=== PATIENT | male | born 1990 | race Caucasian/White ===

== ENCOUNTER 2019-04-03 16:10 | Inpatient (IN) ==
[2019-04-03] MEDS ORDERED: NS 1,000 ML IV ONE ×3 (16:29→17:57)
[2019-04-03] MEDS ORDERED: ZOSYN 4.5 GM in NS 100 ML IV ONE (16:30)
[2019-04-03] MEDS ORDERED: BENTYL IM ONE (16:30)
[2019-04-03] MEDS ORDERED: SODIUM CHLORIDE 0.9% INJ ONE (16:30)
[2019-04-03] MEDS ORDERED: PEPCID IV ONE (16:30)
[2019-04-03 16:55] LABS: BASO% 0.2 % (0.0-0.8); EOS% 0.9 % (0.0-10.0); HEMATOCRIT 51.7 % (42.0-52.0); HEMOGLOBIN 17.6 g/dL (14.0-18.0); IMM GRAN% 0.3 % (0.0-0.5); LYMPH# 1.18 X1000 (1.2-3.4); LYMPH% 4.2 % (20.5-51.1); MCH 30.5 PG (27-31); MCV 89.6 FL (81-99); MONO% 5.3 % (1.7-9.3); NEUT# 24.87 X1000 (1.4-6.5); NEUT% 89.1 % (42.2-75.2); PLT 333 X1000 (130-400); RBC 5.77 XMIL (4.7-6.1); RDW 12.8 % (11.5-14.5); WBC 27.89 X1000 (4.8-10.8)
[2019-04-03 16:56] LABS: ALLEN TEST NO; BE -5.2 mmoll (-3.0-3.0); BLOOD TYPE ARTERIAL; HCO3-(ACT) 20.8 mmoll (20.0-26.0); METHB 1.2 % (0.0-1.5); O2HB 97.1 % (95.0-99.0); PCO2(98.6) 34 mmHg (35-45); PO2(98.6) 137 mmHg (60-100); SAMPLE BLOOD; SAO2 100.2 % (95.0-100.0); THB 18.2 g/dL (11.5-17.4); pH(98.6) 7.36 (7.35-7.45)
[2019-04-03 16:56] LABS: BASO# 0.05 X1000 (0.0-0.2); EOS# 0.25 X1000 (0.0-0.7); IMM GRAN# 0.07 X1000 (0.0-0.04); MONO# 1.47 X1000 (0.11-0.59)
[2019-04-03 16:57] LABS: MODALITY CANNULA
[2019-04-03] MEDS ORDERED: PROTONIX 80 MG in NS 80 ML IV ONE (17:00)
[2019-04-03 17:01] LABS: INR 0.88; PROTIME 12.7 Seconds (11.0-16.0)
[2019-04-03 17:02] LABS: PTT 21.2 Seconds (22.3-41.8)
[2019-04-03] MEDS ORDERED: DILAUDID IV PRN (17:14)
[2019-04-03 17:22] LABS: ALBUMIN 5.4 g/dL (3.5-5.0); CREATININE 1.7 mg/dL (0.7-1.2); MAGNESIUM 2.1 mg/dL (1.5-2.7); POTASSIUM 4.4 mmol/L (3.5-5.1); TOTAL BILIRUBIN 0.61 mg/dL (0.20-1.00); TOTAL PROTEIN 10.6 g/dL (6.3-8.3)
--- NOTE | 2019-04-03 17:56 | PROVIDER DOCUMENTATION ---
This chart was entered by Aviva Hood Scribe, acting as scribe for Desmond Colby MD. HPI-General Adult - General Chief Complaint: B/P Problems Stated Complaint: DIARRHEA,LOW BP Time Seen by Provider: 04/03/19 16:21 Source: patient Allergies/Adverse Reactions: Patient Allergies Allergy/AdvReac Type Severity Reaction Status Date / Time guaifenesin [From Entex T] Allergy excitabilit Verified 04/03/19 16:51 y meperidine [From Demerol] Allergy seizure Verified 04/03/19 16:51 pseudoephedrine Allergy excitabilit Verified 04/03/19 16:51 [From Entex T] y - History of Present Illness -Gen Adult Nature of Presenting Problems: Patient is a 29 year old male who presents to the ED from PCP's office for dehydration. Patient states he has had multiple episodes of diarrhea. Reports history of Crohn's and he received Stelara once a month. States having 1 episode of vomiting with blood present. Patient's mother states patient is on pain pills and has been taking too many, so he is almost out of his pain medications. Location of Pain/Injury: reports: none Pain Radiation: reports: no radiation Quality of Pain: reports: none Severity: reports: moderate Onset/Duration: reports: gradual Timing: reports: still present Associated Symptoms: reports: diarrhea, vomiting (with blood) Similar Symptoms Previously?: Yes Recently seen or treated by another doctor?: Yes Review of Systems - Adult - REVIEW OF SYSTEMS - ADULT Constitutional: reports: no symptoms reported. denies: chills, fever, fatique Eyes: reports: no symptoms reported Ears, Nose, Mouth & Throat: reports: no symptoms reported Cardiovascular: reports: no symptoms reported Respiratory: reports: no symptoms reported Gastrointestinal: reports: see HPI, hematemesis (1 episode), diarrhea. denies: abdominal pain, rectal bleeding Genitourinary: reports: no symptoms reported Musculoskeletal: reports: no symptoms reported Integumentary: reports: no symptoms reported Neurological: reports: no symptoms reported Psychiatric: reports: no symptoms reported Endocrine: reports: no symptoms reported Hematologic/Lymphatic: reports: no symptoms reported Allergic/Immunologic: reports: no symptoms reported All Other Systems: Reviewed and Negative Past History - Adult - PAST MEDICAL HISTORY-ADULT Review of Records: reports: Old Records Reviewed, Nursing Assessment Review, Medications Reviewed, Social history reviewed & non-contributory. Major Childhood Illnesses: reports: denies history Cardiovascular: reports: denies history Respiratory: reports: asthma Gastrointestinal: reports: Crohn's, GERD Obstetrical/Gynecological: reports: denies history Genitourinary: reports: denies history Musculoskeletal: reports: denies history Neurological: reports: Seizures/Epilepsy Endocrine/Immune: reports: denies history Other Conditions: reports: denies history - PRIOR SURGERIES/PROCEDURES Surgical/Procedure History: reports: reviewed, not pertinent - IMMUNIZATION STATUS Childhood Immunizations: See Nurse Assessment Flu Vaccine: See Nurse Assessment - FAMILY HISTORY Family History: reviewed, not pertinent - SOCIAL HISTORY Smoking: denies Substance Use: denies Living Situation: family Physical Exam-General - PHYSICAL EXAM-ADULT Initial Vital Signs Reviewed: Yes - CONSTITUTIONAL General Appearance: alert, mild distress, thin, other (chronically ill appearing) - HEAD, EARS, NOSE, MOUTH & THROAT HENMT: normocephalic/atraumatic, other (dry mucous membranes). negative: angioedema - RESPIRATORY Respiratory: chest non-tender, lungs clear, normal breath sounds. negative: crackles, stridor, wheezing - CARDIOVASCULAR Cardiovascular: normal peripheral pulses, tachycardia. negative: systolic murmur - GASTROINTESTINAL (ABDOMEN) Abdominal Exam: normal bowel sounds, non tender, soft, other (colostomy to RLQ). negative: guarding, rebound - MUSCULOSKELETAL Extremity: non-tender, normal inspection. negative: deformity, erythema - SKIN Integumentary: normal turgor, warm/dry, pallor. negative: cyanosis, erythema, jaundice, rash - NEUROLOGIC Neurologic: grossly normal. negative: aphasia, facial droop - PSYCHIATRIC Psych/Mental Status: normal mood/affect, oriented x 3. negative: anxious Progress - PLAN OF CARE/RESULTS Progress/Plan/Lab Results: Vital Signs - 8 hr 04/03/19 16:19 Temperature 97.8 F Pulse Rate 113 H Respiratory Rate 16 Blood Pressure 89/66 Result Diagrams: 04/03/19 16:30 04/03/19 16:30 - REASSESSMENT Reassessment #1 Time Reassessed: 17:55 Status: improving (responded to IVF bolus of 30ml/kg, BP 99/59, HR 110, states feels better. Skin warm/dry, good cap refill.) Reassessment Comment: CT pending - EKG 1 Time of EKG reading by physician:: 16:18 EKG Read and Signed by:: Desmond Colby EKG Interpretation (*Must complete 3 of following elements*): Abnormal Rate: 113 Rhythm: sinus tachycardia Ramona: normal ID Interval: normal Comments: otherwise normal ECG - CONSULTS/PCP/HOSPITALIST Notification #1 *Consult/PCP/Hospitalist*: Dusty Time Discussed: 17:51 Consult Disposition: other (ask Gamaliel to see patient since he saw him this afternoon) #2 Consult: Gamaliel Time Discussed: 17:54 Consult Disposition: Admit (requests I admit to floor/tele and write holding ord ers) Departure - Departure Date of Disposition Decision: 04/03/19 Time of Disposition Decision: 17:52 DIAGNOSIS: Septic shock due to undetermined organism, Crohn's disease of both small and large intestine with complication Disposition: ADMITTED INPATIENT 09 Certified Medical Emergency: Emergent Condition: Fair Referrals and Follow-Ups: Alexandr Alston MD [Primary Care Provider] - - Critical Care Note This patient required my direct & personal management of CC.: Yes Total Time (mins): 45 ([facility] in peril without multiple interventions) Critical Care Statement: This patient required my direct personal management to treat or rule out processes, the absence of which, could potentiallly result in sudden, clinically significant life or limb threatening deterioration. Attestation - Physician/ MARIE Attestation Patient care was provided by Advanced Practice Provider:: No The physician spent face to face time with patient:: Yes Advanced Practice Provider documentation review:: Supervising physician onsite and consulted in the evaluation and care of this patient. The physician did have a face to face encounter with the patient. This chart was documented by the indicated scribe, (Aviva Hood Scribe) and accurately reflects the services I performed and decisions made by me, Desmond Colby MD, as attested by the provider's signature.
[2019-04-03] MEDS ORDERED: ZOFRAN IV PRN (17:57)
[2019-04-03] MEDS ORDERED: MORPHINE IV PRN (17:57)
--- NOTE | 2019-04-03 18:15 | Diag Imaging Result Doc PS360 ---
EXAM: CT ABD/PELVIS W/IV CONT ONLY 04/03/2019 HISTORY: hx of crohns, diarrhea/sepsis TECHNIQUE: This exam was performed using automated exposure control, adjustment of mA or kV according to patient size, and/or use of iterative reconstruction technique. COMMENT: There are no previous studies available for comparison. There is minimal dependent atelectasis in the posterior costophrenic sulci. There is prominence of the hemiazygos vein. The drainage of the left renal vein apparently is through the hemiazygos to the azygos. The aorta is not distended. There is a right lower quadrant ileostomy. There has apparently been subtotal colectomy. There is bilateral nephrolithiasis with a stone in the upper pole of the right kidney measuring 6 mm. There is no evidence of bowel obstruction. There are some prominent mesenteric nodes. The adrenal glands and spleen are not enlarged. There is a small hiatal hernia. There are bilateral renal cysts. The liver is unremarkable. There are no apparent gallstones. Pelvis: The urinary bladder is not distended. There is no evidence of free fluid. The regional skeleton appears to be intact. IMPRESSION: Bilateral nephrolithiasis without evidence of obstruction. Otherwise no evidence of acute intra-abdominal disease. Electronically signed by Vinay Bradley 04/03/2019 6:12 PM
--- NOTE | 2019-04-03 18:24 | Diag Imaging Result Doc PS360 ---
EXAM: CHEST-1 VIEW 04/03/2019 HISTORY: weakness TECHNIQUE: Semiupright chest COMMENT: There is no evidence of acute cardiac or pulmonary disease. There are no previous studies. IMPRESSION: No acute disease. Electronically signed by Vinay Bradley 04/03/2019 6:21 PM
--- NOTE | 2019-04-03 21:58 | HISTORY AND PHYSICAL ---
CHIEF COMPLAINT: Vomiting, diarrhea, and extreme weakness for 12 hours. HISTORY OF PRESENT ILLNESS: This is the first recent [facility] admission for this 29-year- old white man with history of Crohn disease, colectomy, and Crohn disease of both his duodenum and small intestine. He started to have moderately severe diarrhea this morning. He presented to the office late this afternoon with extreme weakness. Blood pressure was 52/40 in the office and he was sitting in a wheelchair, but could not lie back due to limitations of the chair. He was speaking very softly and slowly because of weakness. He was able to comprehend simple questions. Decision was made to have him go to the emergency room for hydration, then admission. He had fever for a couple of days. There was no history of cough, sore throat or dysuria. He had no blood in the diarrhea. CT scan of his abdomen was done in the emergency room, revealing no gallstones or significant abnormality, except for some prominent mesenteric nodes. He had a small hiatal hernia. There were bilateral renal cysts. Chest x-ray was unremarkable, with no infiltrates. Laboratory showed white blood count 28,000 with 89% neutrophils. Chemistry revealed BUN 22, creatinine 1.7, glucose 109, calcium 11.0, total protein 10.6, albumin 5.4. Troponin T less than 0.01. Plasma lactate 1.1. He has had no recent hospitalizations. His colectomy was over a year ago at [facility]. He has been on Stelara, biologic agent, for Crohn disease. CURRENT MEDICATIONS: Klonopin 1 mg q.i.d.; gabapentin 100 mg q.i.d.; Percocet 10/325 one q.4 hours; Xtampa ER 9 mg 1 b.i.d.; promethazine 25 mg q.4 hours p.r.n. nausea; Zanaflex 4 mg, 0.25 tablet p.r.n.; Desyrel 50 mg at bedtime; Trintellix 10 mg daily. ALLERGIES: Guaifenesin, meperidine, pseudoephedrine and morphine. He has been able to take Dilaudid IV in the past despite his allergy to morphine. REVIEW OF SYSTEMS: Significant for chronic back pain related to both Crohn disease and compression fractures. The compression fractures occurred after long-term p.o. steroids for Crohn disease. His weight has been fairly stable over the past several months. He has been unable to eat anything or drink liquids today because of his nausea. PHYSICAL EXAMINATION: VITAL SIGNS: Temperature 98.7 degrees, heart rate 68, respirations 16, blood pressure 92/57. O2 saturation 98% sat on oxygen 100%. Pain level 3. RECTAL AND GENITALIA: Deferred. He has a colostomy. IMPRESSION: 1. Colitis. 2. Diarrhea and vomiting. 3. Dehydration. 4. Crohn disease. 5. Compression fractures of back. 6. Chronic pain syndrome. 7. Chronic anxiety. 8. Depression. PLAN: Admit for further evaluation and treatment including hydration, cultures and intravenous antibiotics. cc: Alexandr Alston MD MTDD
[2019-04-03] MEDS: NS 1,000 ML IV SCH (23:13)
[2019-04-03 23:16] LABS: URINE SOURCE CLEAN CATCH
[2019-04-03 23:21] LABS: BILIRUBIN URINE NEGATIVE (NEGATIVE); BLOOD URINE MODERATE (NEGATIVE); COLOR YELLOW; GLUCOSE URINE NEGATIVE (NEGATIVE); KETONE URINE NEGATIVE (NEGATIVE); LEUKOCYTES URINE NEGATIVE (NEGATIVE); NITRITE URINE NEGATIVE (NEGATIVE); PROTEIN URINE 50 mg/dL (NEGATIVE); TURBIDITY URINE CLEAR (CLEAR); UR EPITHELIAL CELLS <10 /HPF (<10); URINE BACTERIA NEGATIVE /HPF; URINE RBC 20-40 /HPF (<10); URINE WBC <10 /HPF (<10); UROBILINOGEN URINE NORMAL (NORMAL)
[2019-04-03] MEDS: DILAUDID IV PRN (23:22)
[2019-04-04 00:07] LABS: SP GRAVITY URINE 1.015
[2019-04-04] MEDS: ZOSYN 3.375 GM in NS 50 ML IV SCH ×3 (00:39→16:47)
[2019-04-04] MEDS: NS 1,000 ML IV SCH ×4 (01:08→20:27)
[2019-04-04] MEDS: PROTONIX 80 MG in NS 80 ML IV SCH ×2 (04:33→14:08)
[2019-04-04] MEDS: DILAUDID IV PRN ×5 (04:45→16:52)
--- NOTE | 2019-04-04 07:04 | EKG Report ---
Test Performed on : 04/03/2019 4:18:31 PM Test Reason : ED. NO EKG ORDER FOR MUSE Blood Pressure : / mmHG Vent. Rate : 113 BPM Atrial Rate : 113 BPM P-R Int : 118 ms QRS Dur : 078 ms QT Int : 326 ms P-R-T Axes : 057 074 053 degrees QTc Int : 447 ms Sinus tachycardia. Otherwise normal ECG No previous ECGs available Unconfirmed Result
[2019-04-04 07:47] LABS: BASO# 0.03 X1000 (0.0-0.2); BASO% 0.3 % (0.0-0.8); EOS# 0.42 X1000 (0.0-0.7); EOS% 4.4 % (0.0-10.0); HEMATOCRIT 40.4 % (42.0-52.0); HEMOGLOBIN 13.2 g/dL (14.0-18.0); LYMPH# 1.81 X1000 (1.2-3.4); MCH 30.9 PG (27-31); MCHC 32.7 g/dL (33-37); MCV 94.6 FL (81-99); MONO# 0.78 X1000 (0.11-0.59); MONO% 8.2 % (1.7-9.3); MPV 10.9 FL (7.4-10.4); NEUT% 68.1 % (42.2-75.2); PLT 194 X1000 (130-400); RBC 4.27 XMIL (4.7-6.1); RDW 12.8 % (11.5-14.5); WBC 9.54 X1000 (4.8-10.8)
--- NOTE | 2019-04-04 08:32 | PROGRESS NOTE ---
DATE: 04/04/2019 Temperature 98.4 degrees, heart rate 60, respirations 16, blood pressure 97/57, and O2 saturation on 2 liters nasal oxygen 100%. Pain level 7. Dilaudid IV is helping. Location of pain is in his low back. He has chronic pain due to compression fractures. Nausea has improved markedly. Abdomen is mildly tender, generalized. Diarrhea is somewhat improved. C. Diff antigen was negative. Cultures are pending. He is on Zosyn. CBC revealed hemoglobin 13.2, hematocrit 40.4, and white blood count 9500. Serum lactate is 1.2. PLAN: Increase diet at noon to soft GI. cc: Alexandr Alston MD
[2019-04-04] MEDS ORDERED: AYR NASAL SPRAY NAS ONE (16:26)
[2019-04-04] MEDS: OXYCONTIN PO SCH (20:27)
[2019-04-04] MEDS: PERCOCET-5 PO PRN (20:29)
[2019-04-04] MEDS ORDERED: DILAUDID IV ONE (23:05)
[2019-04-05] MEDS: ZOSYN 3.375 GM in NS 50 ML IV SCH ×3 (00:11→17:32)
[2019-04-05] MEDS: PERCOCET-5 PO PRN ×2 (00:11→04:20)
[2019-04-05] MEDS: NS 1,000 ML IV SCH ×2 (04:22→12:30)
[2019-04-05] MEDS: TYLENOL PO PRN (07:00)
[2019-04-05] MEDS: OXYCONTIN PO SCH ×2 (08:20→22:00)
[2019-04-05] MEDS: DILAUDID IV PRN ×5 (09:13→22:33)
--- NOTE | 2019-04-05 09:55 | PROGRESS NOTE ---
DATE: 04/05/2019 Vital signs stable with temperature 97.5 degrees, heart rate 60, respirations 18, blood pressure 107/69, O2 saturation on nasal oxygen 100%. Pain level 8. The patient has tremor this morning. This may be withdrawal from decreasing dose of narcotics. He moved and injured his back last night and complains of increasing pain. He has not eaten breakfast yet. Lab could not draw his as blood for BMP this morning. Chest is clear. Abdomen is soft. Diarrhea has improved. Blood cultures are showing no growth at this time. PLAN: Continue IV Zosyn, change pain medicine back to IV Dilaudid. Recheck BMP tomorrow morning. cc: Alexandr Alston MD
[2019-04-05 11:05] LABS: AGAP 8; BUN 3 mg/dL (8-22); CALCIUM 7.2 mg/dL (8.8-10.2); CHLORIDE 109 mmol/L (98-107); COSMO 273; CREATININE 0.5 mg/dL (0.7-1.2); ESTIMATED GFR > 60; GLUCOSE 87 mg/dL (70-104); POTASSIUM 3.5 mmol/L (3.5-5.1); SODIUM 139 mmol/L (136-145); TCO2 22 mmol/L (25-35)
[2019-04-05] MEDS: POTASSIUM CHLORIDE 20 MEQ/SWI 20 MEQ/100 ML IVPB IV SCH ×2 (12:17→14:02)
[2019-04-06] MEDS: NS 1,000 ML IV SCH ×3 (01:12→15:11)
[2019-04-06] MEDS: ZOSYN 3.375 GM in NS 50 ML IV SCH ×3 (01:31→18:40)
[2019-04-06] MEDS: DILAUDID IV PRN ×7 (01:32→21:41)
[2019-04-06 08:08] LABS: BASO# 0.03 X1000 (0.0-0.2); BASO% 0.4 % (0.0-0.8); EOS# 0.43 X1000 (0.0-0.7); EOS% 6.1 % (0.0-10.0); HEMATOCRIT 37.3 % (42.0-52.0); HEMOGLOBIN 12.3 g/dL (14.0-18.0); LYMPH% 24.2 % (20.5-51.1); MCH 30.8 PG (27-31); MCV 93.3 FL (81-99); MONO# 0.58 X1000 (0.11-0.59); MONO% 8.3 % (1.7-9.3); NEUT# 4.29 X1000 (1.4-6.5); PLT 179 X1000 (130-400); RDW 12.2 % (11.5-14.5); WBC 7.03 X1000 (4.8-10.8)
--- NOTE | 2019-04-06 08:15 | PROGRESS NOTE ---
DATE: 04/06/2019 SUBJECTIVE: A 29-year-old, white gentleman, admitted with diarrhea, vomiting, extreme weakness. The patient had hypotension. The patient evaluated by PMD. Sent to the ER. The patient was hydrated. Initial workup did reveal acute kidney injury. His history and physical and CT scan results reviewed. The patient claims he is feeling better. His pain seems to be improving. His oral intake is still poor. He does have less diarrhea. No high-grade fever or chills. No typical chest pain. The patient is still having weakness. Blood pressure low normal. No heat or cold intolerance. The patient does have history of Crohn disease, chronic pain, anxiety, compression fracture in the back, depression. OBJECTIVE: Vital Signs: Blood pressure 108/72, pulse 57, respiration 18, temperature 98.5 degrees. HEENT: Head atraumatic, normocephalic. [place] conjunctivae. Anicteric sclerae. Pupils reacting to light. Neck: Supple. No JVD. Lungs: Bibasilar crepitations. Heart: S1 and S2 heard. Abdomen: Soft, globular. Bowel sounds present. Mild diffuse tenderness. No guarding or rigidity. Extremities: No cyanosis, clubbing. No acute DVT. [employer]: Alert, awake. Answering questions fair. LABORATORY DATA: Blood work done yesterday reveal low normal potassium. Calcium was 7.2, BUN 3, creatinine 0.5. CONSIDERATION: 1. Gastroenteritis. 2. Hypotension, improving. 3. History of Crohn disease. 4. Chronic pain. 5. History of kidney stone without obstruction. PLAN: I am going to recheck blood work today. Continue the rest of the treatment. Close observation. Overall plan discussed with the patient and he is in agreement. cc: MD Alexandr Johnston MD
[2019-04-06 08:29] LABS: AGAP 5; ALBUMIN 3.4 g/dL (3.5-5.0); ALKALINE PHOSPHATASE 34 U/L (32-122); BUN 3 mg/dL (8-22); CALCIUM 8.1 mg/dL (8.8-10.2); CHLORIDE 105 mmol/L (98-107); COSMO 275; CREATININE 0.5 mg/dL (0.7-1.2); ESTIMATED GFR > 60; GLUCOSE 84 mg/dL (70-104); GOT 10 U/L (10-34); GPT 8 U/L (10-44); MAGNESIUM 1.6 mg/dL (1.5-2.7); POTASSIUM 3.3 mmol/L (3.5-5.1); SODIUM 140 mmol/L (136-145); TCO2 30 mmol/L (25-35); TOTAL BILIRUBIN 0.48 mg/dL (0.20-1.00); TOTAL PROTEIN 6.8 g/dL (6.3-8.3)
[2019-04-06] MEDS: OXYCONTIN PO SCH ×2 (11:14→21:51)
[2019-04-06] MEDS: POTASSIUM CHLORIDE 20 MEQ/SWI 20 MEQ/100 ML IVPB IV SCH ×2 (13:06→16:00)
[2019-04-06] MEDS: TYLENOL PO PRN (21:54)
[2019-04-07] MEDS: DILAUDID IV PRN ×4 (00:43→09:45)
[2019-04-07] MEDS: ZOSYN 3.375 GM in NS 50 ML IV SCH ×2 (00:45→09:04)
[2019-04-07] MEDS: NS 1,000 ML IV SCH ×2 (00:46→06:37)
--- NOTE | 2019-04-07 19:56 | DISCHARGE SUMMARY ---
ADMISSION DATE: 04/03/2019 DISCHARGE DATE: 04/07/2019 FINAL DIAGNOSES: 1. Enteritis. 2. Crohn disease. 3. Severe dehydration with tachycardia and hypotension. DISCHARGE MEDICATIONS: Usual medication at home including Xtampza 9 mg b.i.d. and Percocet 10/325 one q.4 hours for pain. HISTORY: This is the first recent [facility] admission for this 29-year-old white man who developed moderate diarrhea the morning before admission and nausea. He was very weak when presenting to the office and had blood pressure 52/40 and heart rate 138. He was sent to the emergency room for IV fluids and admission. Chest x-ray revealed no acute disease. CT of his abdomen and pelvis revealed no evidence of free fluid. There was bilateral nephrolithiasis with no evidence of obstruction. There was no other abnormal finding. After a couple of days of hydration, he felt better but continued to have pain. Attempts were made to decrease his usual pain medicine, but because of increasing pain he was given Dilaudid IV. This morning he is alert and vital signs are stable. He has been using nasal oxygen but O2 saturations have been close to 100 daily. Oxygen is discontinued. He is discharged home on his usual home medications. IV antibiotics, Zosyn were given during the hospitalization but microbiology revealed no growth on blood cultures, stool cultures were unremarkable and Clostridium studies were negative. He is to return to the office in 1 week or as needed for followup. cc: Alexandr Alston MD
== END 2019-04-07 10:19 | disposition home health service (06) | DRG 683 ==
LOC: ED 16:10 → 3N 18:19
PROVIDERS: ADMIT Family Medicine; ATTEND Family Medicine
CPT/HCPCS: 71010; 71045; 74177; 80048; 80053; 81001; 82270; 82550; 82805; 83605; 83735; 84484; 85025; 85610; 85730; 87040; 87045; 87046; 87324; 93005; 96361; 96365; 96367; 96372; 96375; 99285; 99291; A9270; C9113; J0500; J1170; J2543; J3480; J7030; Q9967; S0028; S0164